=== PATIENT | male | born 1960 | race Caucasian/White ===

== ENCOUNTER 2020-12-13 13:52 | Emergency (ER) | payer OTHER, SELFPAY ==
[~2020-12-13] VITALS: Ht 167.6 cm; Wt 65.9 kg
[~2020-12-13 13:52] MED LIST: NO MEDS
[2020-12-13 20:04] VITALS: BP 149/87
[2020-12-13 20:22] LABS: APPEARANCE,URINE CLOUDY (CLEAR); BILIRUBIN,URINE NEGATIVE (NEGATIVE); GLUCOSE, URINE (UA) NEGATIVE (NEGATIVE); KETONES,URINE TRACE mg/dL (NEGATIVE); LEUKOCYTE ESTERASE ,URINE SMALL (NEGATIVE); NITRATE,URINE POSITIVE (NEGATIVE); OCCULT BLOOD,URINE SMALL (NEGATIVE); PROTEIN,URINE NEGATIVE (NEGATIVE)
[2020-12-13 20:35] LABS: BACTERIA,URINE Many /HPF (None Seen); WBC,URINE 51-100 /HPF (0-5)
== END 2020-12-13 20:25 | disposition home or self-care (01) ==
LOC: EMS 13:52
DX: N45.3 Epididymo-orchitis (principal); Z59.0 Homelessness
CPT/HCPCS: 76870; 81001; 87077; 87086; 87186; 99284; Z7502